=== PATIENT | female | born 1995 | race Caucasian/White ===

== ENCOUNTER 2018-05-26 09:49 | Emergency (ER) | payer SELFPAY ==
[~2018-05-26] VITALS: Ht 152.4 cm; Wt 60.6 kg
[2018-05-26 09:53] VITALS: BP 133/80; PULSE 88; RESP 18; Ht 152.4 cm; Wt 60.6 kg
--- NOTE | 2018-05-26 10:09 | ERD ---
ER Documentation Chief Complaint Chief Complaint left side upper back pain radiating down left arm x2 days getting worse HPI 23-year-old female, previously healthy, presents to the emergency department, complaining of worsening of left upper back pain radiating to the left arm for 2 days. The patient denies chest pain, no shortness of breath, no history of trauma. The pain is dull, constant, 7/10. Medications taken: Acetaminophen, last dose yesterday. ROS All systems reviewed and are negative except as per history of present illness. Medications Home Meds Active Scripts Acetaminophen* (Tylenol*) 325 Mg Tablet, 2 TAB PO Q8 PRN for PAIN AND OR ELEVATED TEMP, #20 TAB Prov:JANIYA VALENTINE MD 05/26/18 Ibuprofen* (Motrin*) 400 Mg Tab, 400 MG PO Q8, #30 TAB Prov:JANIYA VALENTINE MD 05/26/18 Allergies Allergies: Coded Allergies: No Known Allergy (Unverified , 05/26/18) FmHx Family History: coronary disease; No diabetes Physical Exam Vitals Vital Signs Date Temp Pulse Resp B/P (MAP) Pulse Ox O2 O2 Flow FiO2 Time Delivery Rate 05/26/18 99.4 88 18 133/80 98 09:53 (97) Physical Exam Const: No acute distress Head: Atraumatic Eyes: Normal Conjunctiva ENT: Normal External Ears, Nose and Mouth. Neck: Full range of motion. No meningismus. Resp: Normal inspection, tenderness to palpation of the anterior costochondral cartilage, lungs clear to auscultation bilaterally Cardio: Regular rate and rhythm, no murmurs Abd: Soft, non tender, non distended. Normal bowel sounds Skin: No petechiae or rashes Back: No midline or flank tenderness Ext: No cyanosis, or edema Neur: Awake and alert Psych: Normal Mood and Affect Results 24 hrs Laboratory Tests Test 05/26/18 10:31 05/26/18 10:32 Bedside Urine pH (LAB) 6.0 Bedside Urine Protein (LAB) Negative Bedside Urine Glucose (UA) Negative Bedside Urine Ketones (LAB) 3+ Bedside Urine Blood 3+ Bedside Urine Nitrite (LAB) Negative Bedside Urine Leukocyte Esterase (L Negative POC Beta HCG, Qualitative NEGATIVE Pt with her menses. DIAGNOSTIC IMAGING REPORT Patient: VANIA ANGEL : 1995 Age: 23 Sex: F MR #: [id number] DOS: 05/26/18 1014 Ordering MD: JANIYA VALENTINE MD Location: [facility] Room/Bed: PROCEDURE: XR Chest. CLINICAL INDICATION: Left chest pain TECHNIQUE: PA and Lateral views of the chest were obtained. COMPARISON: None. FINDINGS: Cardiomediastinal silhouette is normal. Pulmonary vasculature is normal. Lungs and costophrenic angles are clear. Bones and soft tissues are unremarkable. IMPRESSION: No evidence for active cardiopulmonary disease. RPTAT:AAJJ Physician Elkin Date Time Electronically viewed and signed by Physician Elkin on 05/26/2018 10:49 BM/ CC: JANIYA VALENTINE MD [id number] EKG read by me: Rate/Rhythm: Regular rate and rhythm at a rate of 80 Intervals: Normal No acute ST changes. No T wave inversion Impression: No evidence of acute ischemia or arrhythmia Procedures/MDM Vital signs stable. Differential diagnosis include but not limited to: URI, PNA, chostochondritis, GERD, musculoskeletal injury, less likely PE, pericarditis, endocarditis. Pertinent Data: 12 Lead ECG: Sinus rhythm, no ST changes, normal T wave, normal intervals Radiology: Chest x-rays: Normal Physical examination and clinical presentation consistent most likely with atypical chest pain most likely secondary to costochondritis. During the ED course the patient remained stable, no new complaints. Results and clinical impression discussed with patient who agrees with management. The patient is stable to be treated outpatient and will be discharged home with a Rx for ibuprofen; some side effects of prescribed medications (headache, rash, nausea, vomiting, diarrhea, drowsiness, habituation, bleeding, hypertension, interactions with other medications) were reviewed. The patient was instructed to follow up with the primary care provider in the next 48h. If symptoms persist, worsen or new symptoms develop, then patient should return to the ED immediately. Instructions explained and given directly by me to the patient with acknowledgment and demonstrated understanding. Disclaimer: Inadvertent spelling and grammatical errors are likely due to EHR/dictation software use and do not reflect on the overall quality of patient care. Also, please note that the electronic time recorded on this note does not necessarily reflect the actual time of the patient encounter. Departure Diagnosis: Primary Impression: Chest wall pain Additional Impression: Costochondritis, acute Condition: Stable Patient Instructions: Chest Wall Pain, Costochondritis Additional Instructions: Thank you very much for allowing us to participate in your care. Your health and safety is our top priority at [facility]. Call your primary care doctor TOMORROW for an appointment during the next 2-4 days and bring all the information and medications prescribed. Have prescriptions filled and follow precisely the directions on the label. If the symptoms get worse and your provider is unavailable, return to the Emergency Department immediately. JANIYA VALENTINE MD May 26, 2018 10:09
[2018-05-26] MEDS ORDERED: IBUP-1561 PO (10:56)
[2018-05-26] MEDS ORDERED: ACET325T33 PO (10:56)
== END 2018-05-26 11:16 | disposition home or self-care (01) ==
LOC: FTE 09:49
DX: M94.0 Chondrocostal junction syndrome [Tietze] (principal)
CPT/HCPCS: 71046; 81003; 81025; 93005